=== PATIENT | female | born 1980 | race Caucasian/White ===

== ENCOUNTER 2020-02-17 00:29 | Emergency (ER) | payer BC ==
[2020-02-17 00:44] VITALS: BP 137/81; TEMP 98.5; BMI 21.2
[2020-02-17] MEDS ORDERED: ACETAMINOPHEN 1000 MG/100 ML VIAL (NON FORMULARY) IVPB ONE (01:01)
[2020-02-17] MEDS ORDERED: SODIUM CHLORIDE 1,000 ML IV STA (01:01)
[2020-02-17] MEDS ORDERED: METOCLOPRAMIDE HCL INJECTION 10 MG/2 ML VIAL IVPB ONE (01:01)
[2020-02-17] MEDS ORDERED: ACETAMINOPHEN INJECTION 100 ML IVPB ONE (01:22)
[2020-02-17] MEDS ORDERED: METOCLOPRAMIDE HCL INJECTION 10 MG/2 ML VIAL ONE (01:22)
[2020-02-17 01:48] LABS: BASO % 0.5 % (0-2.0); EOS % 1.5 % (0-4.5); HEMATOCRIT 37.4 % (32.4-45.2); HEMOGLOBIN 12.6 GM/dL (10.7-15.3); LYMPH % 43.1 % (8-40); MCH 29.5 pg (25.7-33.7); MCHC 33.8 g/dl (32.0-36.0); MEAN CELL VOLUME 87.2 fl (80-96); MEAN PLT VOLUME 8.4 fl (7.5-11.1); MONO % 8.6 % (3.8-10.2); NEUT % 46.3 % (42.8-82.8); PLATELET COUNT 198 K/MM3 (134-434); RBC 4.28 M/mm3 (3.60-5.2); RDW 12.8 % (11.6-15.6); WHITE BLOOD COUNT 5.3 K/mm3 (4.0-10.0)
[2020-02-17 01:53] LABS: EPI CELLS >36 /uL (0-25.1); HCG,QUALITATIVE URINE Negative; HYALINE CASTS 2 /uL (0-3.1); URINE APPEARANCE CLEAR; URINE BACTERIA 503 /uL (0-1359); URINE BILIRUBIN NEGATIVE (NEGATIVE); URINE COLOR YELLOW; URINE GLUCOSE (UA) NEGATIVE (NEGATIVE); URINE KETONE NEGATIVE (NEGATIVE); URINE LEUK ESTERASE 2+ (NEGATIVE); URINE NITRITE NEGATIVE (NEGATIVE); URINE PROTEIN NEGATIVE (NEGATIVE); URINE RBC 22 /uL (0-23.9); URINE WBC 58 /uL (0-25.8)
[2020-02-17 02:06] LABS: POTASSIUM 3.8 mmol/L (3.5-5.1)
[2020-02-17 02:08] LABS: CALCIUM 8.9 mg/dL (8.5-10.1)
[2020-02-17 02:09] LABS: ALBUMIN 3.8 g/dl (3.4-5.0); BLOOD UREA NITROGEN 9.7 mg/dL (7-18)
[2020-02-17 02:12] LABS: CREATININE 0.5 mg/dL (0.55-1.3)
[2020-02-17 02:13] LABS: BILIRUBIN,TOTAL 0.4 mg/dL (0.2-1); TOT PROT 7.1 g/dl (6.4-8.2)
[2020-02-17] MEDS ORDERED: KETOROLAC TROMETHAMINE 60 MG/2 ML VIAL IVPUSH ONE (04:03)
[2020-02-17] MEDS ORDERED: CEFTRIAXONE 1,000 MG in DEXTROSE 5%-WATER - 50 ML IVPB ONE (04:04)
[2020-02-17] MEDS ORDERED: CEFTRIAXONE 1 GM/50 ML BAG ONE (04:30)
[2020-02-17] MEDS ORDERED: KETOROLAC TROMETHAMINE 15 MG/ML VIAL ONE (04:30)
[2020-02-17 05:25] VITALS: PULSE 76
== END 2020-02-17 05:57 | disposition home or self-care (01) ==
LOC: JER 00:29
PROC: 3E03329 Introduction of Other Anti-infective into Peripheral Vein, Percutaneous Approach (ICD-10-PCS; principal; 2020-02-17)
PROC: 3E0333Z Introduction of Anti-inflammatory into Peripheral Vein, Percutaneous Approach (ICD-10-PCS; 2020-02-17)
PROC: 3E033NZ Introduction of Analgesics, Hypnotics, Sedatives into Peripheral Vein, Percutaneous Approach (ICD-10-PCS; 2020-02-17)
PROC: 3E0337Z Introduction of Electrolytic and Water Balance Substance into Peripheral Vein, Percutaneous Approach (ICD-10-PCS; 2020-02-17)
DX: N12 Tubulo-interstitial nephritis, not specified as acute or chronic (principal)
CPT/HCPCS: 36415; 74176-TC; 80053; 81003; 84703; 85025; 87086; 87186; 99285-25; J0131